=== PATIENT | male | born 1985 | race Caucasian/White ===

== ENCOUNTER 2021-09-28 23:24 | Emergency (ER) | payer MEDICAID ==
[~2021-09-28] VITALS: Ht 167.6 cm; Wt 64.0 kg
[2021-09-28] MEDS ORDERED: HYDROCODONE/ACETAMINOPHEN 5/325MG TABLET PO STA (23:42)
[2021-09-28] MEDS ORDERED: KETOROLAC 60MG/2ML VIAL IM STA (23:42)
[2021-09-28] MEDS ORDERED: ONDANSETRON HCL 4MG/2ML INJ IM STA (23:45)
[2021-09-29 00:01] LABS: CLARITY URINE CLOUDY (CLEAR); COLOR URINE DARK YELLOW (YELLOW); KETONES URINE TRACE (NEGATIVE); LEUKOCYTE ESTERASE URINE 1+ (NEGATIVE); NITRITE URINE NEGATIVE (NEGATIVE); OCCULT BLOOD URINE NEGATIVE (NEGATIVE); PROTEIN URINE TRACE (NEGATIVE); SPECIFIC GRAVITY URINE 1.034 (1.005-1.030)
[2021-09-29] MEDS ORDERED: MORPHINE SULFATE 10 MG/ML CPJ IM STA (01:26)
[2021-09-29] MEDS ORDERED: LIDOCAINE HCL/PF 1% 2ML VIAL INFIL STA (01:26)
[2021-09-29] MEDS ORDERED: CEFTRIAXONE SODIUM 1 G/VIAL IM STA (01:26)
[2021-09-29] MEDS ORDERED: IBUP-2030 MT (02:08)
[2021-09-29] MEDS ORDERED: DOXY-326 PO (02:08)
[2021-09-29] MEDS ORDERED: ONDA4TAB5 MT (02:08)
[2021-09-29] MEDS ORDERED: HYDR-4001 PO (02:08)
[2021-09-29 02:32] VITALS: BP 125/66
== END 2021-09-29 02:34 | disposition home or self-care (01) ==
LOC: ER 23:24
DX: N45.1 Epididymitis (principal); N45.2 Orchitis; N43.3 Hydrocele, unspecified; I86.1 Scrotal varices
CPT/HCPCS: 76870; 81003; 87077; 87086; 87186; 93976; 96372; 99284; J0696; J1885; J2270; J2405; J3490

== ENCOUNTER 2022-10-16 09:10 | Emergency (ER) | payer MEDICAID ==
[~2022-10-16] VITALS: Ht 167.6 cm; Wt 62.1 kg
[~2022-10-16 09:10] MED LIST: DOXY-326 PO; HYDR-4001 PO; IBUP-2030 MT; ONDA4TAB5 MT
[2022-10-16] MEDS ORDERED: IOHEXOL-350 100 ML BOTTLE ONE (09:47)
[2022-10-16 11:06] LABS: BASOPHILS % 0.4 % (0.0-2.0); CHLORIDE 109 mEq/L (98-107); EOSINOPHILS % 0.5 % (0.0-5.0); HEMATOCRIT. 44.3 % (42.0-52.0); HEMOGLOBIN. 15.2 g/dL (14.0-18.0); LYMPHOCYTES % 17.3 % (20.0-50.0); MEAN CORPUSCULAR VOLUME 84.2 fL (80.0-94.0); MEAN PLATELET VOLUME 7.8 fl (7.4-10.4); MONOCYTES % 4.8 % (2.0-8.0); PLATELET 143 x1000/uL (130-400); RED BLOOD CELL COUNT 5.26 mill/uL (4.7-6.1); RED CELL DISTRIBUTION WIDTH 14.6 % (11.6-14.6)
[2022-10-16 11:15] LABS: CREATINE KINASE 110 IU/L (39-308); ETHANOL BLOOD < 10 mg/dL
[2022-10-16] MEDS ORDERED: CLOPIDOGREL 75MG TABLET PO ONE (12:15)
[2022-10-16] MEDS ORDERED: CLOPIDOGREL 75MG TABLET PO NR (14:00)
[2022-10-16 16:00] VITALS: BP 107/64
[2022-10-16] MEDS ORDERED: ENOXAPARIN 40MG/0.4ML SYR SUBCUT SCH (17:00)
[2022-10-16] MEDS ORDERED: ATORVASTATIN CALCIUM 40MG TABLET PO SCH (21:00)
[2022-10-17] MEDS ORDERED: ASPIRIN 81MG TABLET PO SCH (09:00)
== END 2022-10-16 16:15 | disposition left against medical advice (07) ==
LOC: ER 09:10 → EDBEDREQ 09:25 → EDBEDREQTM 09:56 → EDBEDREQ 10:40 → EDBEDREQTM 10:40 → EDBEDREQSVC 10:40 → ER 16:15 → CANBEDREQ 10-18 21:03
DX: R29.818 Other symptoms and signs involving the nervous system (principal); R06.02 Shortness of breath; I44.0 Atrioventricular block, first degree; M47.892 Other spondylosis, cervical region
CPT/HCPCS: 36415; 70450; 70496; 70498; 70551; 71045; 80053; 80320; 82550; 82962; 84484; 85025; 93005; 99291; Q9967; Z7610; G0480

== ENCOUNTER 2023-06-05 19:48 | Emergency (ER) | payer BC, MEDICAID ==
[~2023-06-05] VITALS: Ht 165.1 cm; Wt 59.9 kg
[~2023-06-05 19:48] MED LIST changes: -DOXY-326 PO; +DOXY-456 PO
[2023-06-05 20:10] VITALS: BP 118/80; O2SAT 99
[2023-06-05] MEDS ORDERED: BO1 TP (22:24)
[2023-06-05 23:00] VITALS: PULSE 78; RESP 18; TEMP 98.1
== END 2023-06-05 23:14 | disposition home or self-care (01) ==
LOC: ER 19:48
DX: S50.811A Abrasion of right forearm, initial encounter (principal); W57.XXXA Bitten or stung by nonvenomous insect and other nonvenomous arthropods, initial encounter; Y93.89 Activity, other specified; Y92.89 Other specified places as the place of occurrence of the external cause; Y99.8 Other external cause status
CPT/HCPCS: 99282

== ENCOUNTER 2023-12-18 06:45 | Emergency (ER) | payer BC, MEDICAID ==
[~2023-12-18] VITALS: Ht 167.6 cm; Wt 70.0 kg
[~2023-12-18 06:45] MED LIST changes: +BO1 TP
[2023-12-18 06:54] VITALS: O2SAT 100
[2023-12-18] MEDS: ACETAMINOPHEN 325MG TABLET PO ONE (09:22)
[2023-12-18] MEDS: IBUPROFEN 600MG TABLET PO ONE (09:22)
[2023-12-18] MEDS: ONDANSETRON 4MG ODT PO ONE (09:22)
[2023-12-18 13:20] VITALS: BP 102/69; PULSE 99; RESP 12; TEMP 97.3
[2023-12-18] MEDS ORDERED: TOPUD MT (13:20)
[2023-12-18] MEDS ORDERED: ONDA4TAB50 MT (13:20)
[2023-12-18] MEDS ORDERED: IBUP-1523 MT (13:20)
== END 2023-12-18 13:36 | disposition home or self-care (01) ==
LOC: ER 06:45
DX: B34.9 Viral infection, unspecified (principal)
CPT/HCPCS: 99284; 71045; 93005; Q0162